=== PATIENT | male | born 2000 | race Two or more races ===

== ENCOUNTER 2023-12-06 13:02 | Emergency (ER) | payer MEDICAID, OTHER ==
[~2023-12-06] VITALS: Ht 177.8 cm; Wt 113.6 kg
[~2023-12-06 13:02] MED LIST: AMOX400S53 PO; DEXTSYP35 PO
[2023-12-06 16:11] VITALS: BP 117/54; PULSE 64; RESP 20; TEMP 98.2; O2SAT 95
[2023-12-06] MEDS: TETANUS-DIPTH-ACEL PERTUSSIS 0.5ML SYR Tdap IM ONE (16:28)
== END 2023-12-06 16:28 | disposition home or self-care (01) ==
LOC: ER 13:06
DX: S61.012A Laceration without foreign body of left thumb without damage to nail, initial encounter (principal); W26.8XXA Contact with other sharp object(s), not elsewhere classified, initial encounter; Y93.89 Activity, other specified; Y92.89 Other specified places as the place of occurrence of the external cause; Y99.8 Other external cause status
CPT/HCPCS: 90471; 90715